=== PATIENT | male | born 1980 | race Caucasian/White ===

== ENCOUNTER 2017-03-20 19:22 | Emergency (ER) | payer OTHER ==
[2017-03-20 19:39] VITALS: BP 196/56
[2017-03-20] MEDS ORDERED: METHYLPREDNISOLONE ACETATE 80 MG/ML VIAL IM ONE (20:06)
[2017-03-20] MEDS ORDERED: ALBUTEROL SULFATE 2.5 MG/0.5 ML VIAL.NEB IH ONE ×2 (20:06→20:09)
[2017-03-20] MEDS ORDERED: METHYLPREDNISOLONE ACETATE 80 MG/ML VIAL ONE (20:09)
--- NOTE | 2017-03-20 20:15 | ERNOTE ---
Date of Service: 03/20/17 Time Seen by Provider: 03/20/17 20:03 Stated Complaint: URI Presenting Symptoms:: cough, runny nose, fever Source: patient Exam Limitations: no limitations Immunizations: IMMUNIZATION HX Immunizations Up to Date Yes History of Influenza Vaccine No Hx Pneumococcal Vaccination No Allergies/Adverse Reactions: Allergies amoxicillin [Amoxicillin] Allergy (Verified 03/20/17 19:39) Home Medications: HOME MEDICATIONS Albuterol Sulfate [Ventolin Hfa] 2 puff IH Q4H PRN #1 inhaler 03/20/17 [Last Taken Unknown] Doxycycline Monohydrate 100 mg PO BID #20 tablet 03/20/17 [Last Taken Unknown] Ibuprofen 800 mg PO Q8H PRN 03/20/17 [Last Taken 03/20/17] predniSONE [Prednisone] 3 tab PO DAILY #9 tab 03/20/17 [Last Taken Unknown] - History of Present Ilness Narrative: Pt. comes in with c/o fever, cough, sore throat, rhinorrhea, sinus congestion, chest congestion, orthopnea, for two days; but denies any SOB, NVD, CP, recent injury but states that a friend has had a similar illness for a couple weeks. Pt. denies any alleviaitng factors, aggravating factors or prehospital treatment. Pt. uses a cpap at home and states that he has increased sputum after using it today. Review of Systems - Review of Systems Constitutional: Present: fever, chills, diaphoresis, weakness, fatigue, malaise. Absent: weight loss, decreased activity level EYE: Present: no symptoms reported ENT: Present: nose congestion, nasal drainage, sore throat. Absent: throat swelling Respiratory: Present: cough, orthopnea, wheezing. Absent: shortness of breath Cardiology: Absent: chest pain, palpitations, edema Gastrointestinal/Abdominal: Present: no symptoms reported. Absent: nausea, vomiting, diarrhea Genitourinary: Present: no symptoms reported Musculoskeletal: Present: no symptoms reported. Absent: back pain, joint pain Skin: Present: no symptoms reported. Absent: rash, change in color Neurological: Present: no symptoms reported. Absent: headache, dizziness/light- headedness, numbness, tingling All Other Systems: All systems neg except as marked - Patient's Past Medical History Patient History - Medical: Obesity Patient History - Cardiac/Respiratory: Asthma, Bronchitis, Hypertension, Pneumonia, CPAP/BiPAP Home Use, Sleep Apnea Patient History - Cancer: No Hx of Cancer Patient History - Surgical Procedures: No surgical history Patient History - Other: None - Family History Father Family History - Medical: Diabetes Type 2 Family History - Cardiac/Respiratory: Myocardial Infarction - Social History Living Situations: home Abuse History: No History of abuse Psych History: No pertinent hx Smoking Status: Never smoker Alcohol Use: rarely Drug Use: none - Immunizations Immunizations Up to Date: Yes Hx Pneumococcal Vaccination: No History of Influenza Vaccine: No Physical Exam - Physical Exam General Appearance: Present: wd/wn, alert, no apparent distress Head Exam: Present: normal inspection, no evidence of injury Eye Exam: Normal inspection: bilateral, PERRL: bilateral, EOMI: bilateral Ears, Nose, Throat: Present: nasal congestion, pharyngeal erythema. Absent: abnormal TM (R), abnormal TM (L), tonsillar swelling Neck: Present: normal inspection, nontender, supple, full range of motion. Absent: lymphadenopathy (R), lymphadenopathy (L) Respiratory: Present: no respiratory distress, crackles - coarse upper, wheezing - exp throughout Cardiovascular/Chest: Present: no murmur, normal peripheral pulses, tachycardia Gastrointestinal/Abdominal: Present: normal bowel sounds, nontender, nondistended, soft, no organomegaly, other - obese Back Exam: Present: normal inspection Extremity Exam: Present: normal inspection Neurological Exam: Present: alert, oriented, normal mood/affect, no motor/ sensory deficits Skin Exam: Present: warm/dry, pallor ED Progress - Date and Time Seen: Date and Time: 03/20/17 21:06 Given pt. severity of illness and significant pulmonary history will start pt. on abx with steroid burst and prn rescue inhaler. - Vital Signs Patient's Vital Signs:: I have reviewed the patient's vital signs. Vital Signs: Vital Signs 03/20/17 19:34 Temperature 37.5 C Pulse Rate 98 Respiratory 22 H Rate Blood Pressure 196/56 O2 Sat by Pulse 99 Oximetry - X-Ray X-Ray #1 X-Ray: chest Interpretation: Interp. by me X-ray Comments: No obvious consolidations noted bronchial cuffing noted. - Progress/Reassessment Chief Complaint: Upper Respiratory Symptoms Departure - Departure Clinical Impression: Acute bronchitis Qualifiers: Bronchitis organism: unspecified organism Qualified Code(s): J20.9 - Acute bronchitis, unspecified Disposition: Home self-care Condition: Good Instructions: Acute Bronchitis, [id number] Additional Instructions: Please follow up with primary provider in 2-3 days. Cough and deep breath 10 x every hour. Referrals: Todd Harry MD [Primary Care Provider] - Prescriptions: Albuterol Sulfate [Ventolin Hfa] 2 puff IH Q4H PRN #1 inhaler PRN Reason: Shortness Of Breath Doxycycline Monohydrate 100 mg PO BID #20 tablet predniSONE [Prednisone] 3 tab PO DAILY #9 tab
== END 2017-03-20 21:10 | disposition home or self-care (01) ==
LOC: ER 19:22
DX: J20.9 Acute bronchitis, unspecified (principal)

== ENCOUNTER 2018-05-31 13:56 | Observation (INO) ==
[2018-05-31] MEDS ORDERED: NORMAL SALINE 1,000 ML IV ONE ×2 (14:29→15:41)
[2018-05-31] MEDS ORDERED: ONDANSETRON HCL/PF 2 MG/ML VIAL IV ONE (14:29)
--- NOTE | 2018-05-31 14:30 | ERNOTE ---
Dyspnea - Date Date of Service: 05/31/18 - General Presenting Symptoms: shortness of breath, other - vomiting Time Seen by Provider: 05/31/18 14:21 Source: patient, RN notes reviewed Exam Limitations: clinical condition - Immun/Allergies/Home Medications Immunizations: IMMUNIZATION HX Immunizations Up to Date Yes History of Influenza Vaccine No Hx Pneumococcal Vaccination No Allergies/Adverse Reactions: Allergies amoxicillin [Amoxicillin] Allergy (Verified 05/31/18 14:16) Home Medications: HOME MEDICATIONS metFORMIN HCL [Metformin HCl] 500 mg PO DAILY 01/12/18 [Last Taken Unknown] Ibuprofen [Motrin] 800 mg PO QID PRN 05/31/18 [Last Taken Unknown] - History of Present Illness Narrative: Bentley is a 37 year old male who drove himself to the ED for vomiting and dyspnea that began early this morning. He has been vomiting once or twice a day for approximately 2 weeks. He has had several episodes of vomiting so far today. He has not had a bowel movement for 3 days, but he also reports that he has not been eating much for the past 2 weeks. He denies having a cough or any sick contacts. He is type II diabetic and has not been checking his blood sugars. He also reports having acid reflux and frequent belching. He has been taking Tums for this. Date (Duration): 05/31/18 Time (Timing): 03:00 Treatment DAIRY FARMER: none Initiating event: Reports: unknown Modifying Factors - (Improves): Reports: rest Modifying Factors (Worsens): Reports: activity. Denies: lying down Prior Treatment: Denies: recently seen Review of Systems - Review of Systems Constitutional: Present: malaise. Absent: fever, chills EYE: Present: no symptoms reported ENT: Absent: nose congestion, sore throat Respiratory: Present: shortness of breath. Absent: cough, orthopnea, wheezing Cardiology: Absent: chest pain, syncope Gastrointestinal/Abdominal: Present: nausea, vomiting, abdominal pain, eating less. Absent: diarrhea, drinking less Genitourinary: Absent: frequency, dysuria, hematuria Musculoskeletal: Absent: muscle pain, joint pain Skin: Absent: rash, lesions Neurological: Absent: headache, dizziness/light-headedness Endocrine: Present: increased thirst. Absent: increased urine Hematologic/Lymphatic: Absent: easy bruising, easy bleeding Psych: Present: no symptoms reported Medical History (Last Updated 05/31/18 @ 19:40 by Zeinab Whalen NP) Sleep apnea Cellulitis of both lower extremities Diabetes Lymphedema of both lower extremities Obesity Surgical History: Surgical History (Last Reviewed 05/31/18 @ 19:40 by Zeinab Whalen NP) No pertinent past surgical history Social History: Preferred Language Macedonian Smoking Status Never smoker Abuse History No History of abuse Psych History No pertinent hx Alcohol Use rarely Drug Use none No Social History Section defined Physical Exam - Physical Exam General Appearance: Present: alert, mild distress, obese - Extreme, morbid Head Exam: Present: normal inspection Ears, Nose, Throat: Present: normal ENT inspection, normal pharynx Respiratory: Present: chest nontender, accessory muscle use - mild tachypnea, decreased breath sounds - d/t large body habitus Cardiovascular/Chest: Present: no murmur, tachycardia Gastrointestinal/Abdominal: Present: normal bowel sounds, soft, tenderness - Mild, right and left upper quadrants, distended - Obese Back Exam: Present: normal inspection, no CVA tenderness Extremity Exam: Present: non-tender, normal range of motion, pedal edema Neurological Exam: Present: alert, oriented, normal mood/affect, no motor/sensory deficits Skin Exam: Present: normal color, warm/dry ED Progress - Results and Orders Patient's Lab Results:: I have reviewed the patient's lab results. - Vital Signs Patient's Vital Signs:: I have reviewed the patient's vital signs. Vital Signs: Vital Signs 05/31/18 13:57 Temperature 37.8 C Pulse Rate 136 H Respiratory Rate 22 H Blood Pressure 187/95 H O2 Sat by Pulse Oximetry 97 - EKG EKG: supraventricular tachycardia EKG read: Reviewed by me - X-Ray X-Ray #1 X-Ray: chest Interpretation: Reviewed by me X-ray Comments: No acute cardiopulmonary abnormality noted - CT/Ultrasound CT/Ultrasound Narrative: US gall bladder shows sludge but no wall thickening or surrounding fluid Retroperitoneal US demonstrates no hydronephrosis - Progress/Reassessment Chief Complaint: Dyspnea Progress:: Improved Plan - Plan Plan: Nausea and vomiting resolved with Zofran. Toradol was given for abdominal pain with some improvement. The patient was given 2 liters of IV NS with some improvement in his heart rate from the 130's on arrival to the low 100's currently. He has continued to complain of dyspnea. He is mildly tachypneic at rest and does become dyspneic with exertion. His oxygen saturation has remained in the high 90's on room air and his chest xray was unremarkable. He has no chest pain and no prior history of VTE, making a PE unlikely. His WBC was elevated but procalcitonin and lactic acid were normal. His bilirubin was elevated, and given the location of his abdominal pain, along with his vomiting and leukocytosis, cholecystitis was suspected. An US of the gall bladder was done and only showed sludge. A retroperitoneal US was done to evaluate his hematuria as he is too large for the CT scanner. This was unremarkable as well. Dr. Valdez was contacted and agreed to admitting the patient to observation status. He will be started on Levaquin to cover his UTI as well as any possible pneumonia. His blood pressure was elevated at 200/120 prior to transfer to med/surg. Labetolol 20 mg was given IV. Departure Clinical Impression: UTI (urinary tract infection) Qualifiers: Urinary tract infection type: site unspecified Hematuria presence: with hematuria Qualified Code(s): N39.0 - Urinary tract infection, site not specified Dyspnea Qualifiers: Dyspnea type: unspecified Qualified Code(s): R06.00 - Dyspnea, unspecified Vomiting Qualifiers: Vomiting type: unspecified Vomiting Intractability: non-intractable Nausea presence: with nausea Qualified Code(s): R11.2 - Nausea with vomiting, unspecified - Departure Disposition: Still a patient Condition: Stable
[2018-05-31 14:50] LABS: Hematocrit 34.7 % (42.0-52.0); Mean Cell Volume 79.6 fl (78-100); Mean Corpuscular Hemoglobin 25.2 pg (27-31); Mean Corpuscular Hgb Conc 31.7 g/dl (32-36); Mean Platelet Volume 10.4 fl (8-11.3); Neutrophil # 11.2 K/mm3 (1.3-6.0); Neutrophil % 84.9 % (42-75.0); Platelet Count 321 K/mm3 (150-450); Red Blood Count 4.36 M/mm3 (4.7-6.0); Red Cell Distribution Width 16.1 % (11.5-14.0); White Blood Count 13.2 K/mm3 (4.0-10.5)
[2018-05-31 15:07] LABS: Albumin * 2.5 gm/dl (3.4-5.0); BUN/Creatinine Ratio 7.6 (9.0-21.6); Bilirubin, Total 1.8 mg/dL (0.0-1.1); Carbon Dioxide 25.2 mmol/L (24-32.6); Potassium 4.2 mmol/L (3.4-4.6); Total Protein 7.6 gm/dL (6.2-8.2)
[2018-05-31 15:29] LABS: Ca. Corrected For Albumin 10.5 mg/dL (8.4-10.2); Calcium * 9.6 mg/dL (7.9-10.9)
[2018-05-31 15:57] LABS: Amylase * 16 U/L (25-115); Lipase 113 U/L (73-393)
[2018-05-31 15:59] LABS: Urine Bilirubin 1 mg/dl (NEGATIVE); Urine Blood 250 /ul (NEGATIVE); Urine Ketone Negative (NEGATIVE); Urine Nitrite Negative (NEGATIVE); Urine Protein 100 mg/dL (NEGATIVE); Urine Specific Gravity >=1.030 SP.GR. (1.005-1.030); Urine Urobilinogen Normal (NORMAL)
[2018-05-31] MEDS ORDERED: KETOROLAC TROMETHAMINE 30 MG/ML VIAL IV ONE (15:59)
[2018-05-31 16:18] LABS: Urine Appearance Slightly Cloudy (CLEAR); Urine Color Amber
[2018-05-31 16:20] LABS: Urine Bacteria None Seen; Urine Fine Granular Cast TRACE /LPF; Urine RBC 25-50 /hpf (0-5)
[2018-05-31] MEDS ORDERED: LEVOFLOXACIN IN DEXTROSE 5 % 750 MG/150 ML BAG IV ONE (18:51)
[2018-05-31] MEDS ORDERED: LABETALOL HCL 5 MG/ML VIAL IV ONE (18:53)
[2018-05-31] MEDS ORDERED: ONDANSETRON HCL/PF 2 MG/ML VIAL IV PRN (21:37)
[2018-05-31] MEDS: NORMAL SALINE 1,000 ML IV PRN (22:12)
--- NOTE | 2018-05-31 22:51 | HP ---
Chief Complaint - Chief Complaint Date of Service: 05/31/18 Time of Service: 22:50 Chief Complaint: Nausea, vomiting History of Present Illness: Bentley is a 37 yo male with severe morbid obesity who presented to the [facility] ER with fever, chills, abdominal pain, nausea, and vomiting. Symptoms were treated in the ER but did not resolve. He was found to have hyponatremia of 126 and WBC of 13K. He also had blood present in UA and it was suspected he might have a kidney stone. US was performed but showed no evidence of stone or obstruction. Due to his weight he was unable to be scanned on CT. Chest xray showed nothing acute. As his symptoms were uncontrolled in the ER, medicine was contacted to admit to observation. Medical History (Last Reviewed 06/13/18 @ 13:13 by Todd Harry MD) Psoriasis (Chronic) Hypertension (Chronic) Bilateral lower extremity edema (Chronic) Asthma (Chronic) Sleep apnea (Chronic) Diabetes (Chronic) Cellulitis of both lower extremities Lymphedema of both lower extremities Obesity Surgical History: Surgical History (Last Reviewed 06/13/18 @ 13:13 by Todd Harry MD) No pertinent past surgical history Family History: Family History (Last Reviewed 06/13/18 @ 13:13 by Todd Harry MD) Father Diabetes Myocardial infarction Hypertension CVA (cerebral vascular accident) Mother Skin cancer Social History: Patient Lives/Resources Home Utilized Occupation Unemployed Preferred Language Pashto Do you have any pentecostalism or No cultural preference? Smoking Status Never smoker Have you smoked in the past 12 No months Do you dip or chew tobacco No Abuse History No History of abuse Psych History No pertinent hx Alcohol Use rarely Drug Use none No Social History Section defined Review Of Systems (GEN) - Review of Systems Generalized/Overall Review: Present: Weakness, Chills, Fever, Malaise, Diaphoresis, Fatigue EENTM: Present: No Symptoms Reported Respiratory: Present: Shortness of Breath. Absent: Cough Cardiac: Absent: Chest Pain, Palpitations Abdominal: Present: Nausea, Vomiting, Abdominal Pain Genitourinary: Absent: Burning, Urgency, Frequency Musculoskeletal: Present: Joint Pain, Back Pain Neurological: Present: Headache Skin: Present: No Symptoms Reported Endocrine: Present: No Symptoms Reported Immunizations: IMMUNIZATION HX Immunizations Up to Date Yes History of Influenza Vaccine No Hx Pneumococcal Vaccination No Allergies/Adverse Reactions: Allergies Allergy/AdvReac Type Severity Reaction Status Date / Time amoxicillin [Amoxicillin] Allergy Verified 06/07/18 15:12 Home Medications: HOME MEDICATIONS metFORMIN HCL [Metformin HCl] 500 mg PO DAILY 01/12/18 [Last Taken Unknown] Ibuprofen [Motrin] 800 mg PO QID PRN 05/31/18 [Last Taken Unknown] Lisinopril [Zestril] 10 mg PO DAILY #30 tab 06/02/18 [Last Taken Unknown] Ondansetron HCl [Zofran] 8 mg PO Q6H #30 tab 06/02/18 [Last Taken Unknown] sulfamethoxazole 800 mg-trimethoprim 160 mg tablet 1 tab PO Q12H #28 tab 06/07/18 [Last Taken Unknown] Exam - Exam Vital Signs: Vital Signs - Last Taken Temp 37.3 C 05/31/18 19:50 Pulse 113 H 05/31/18 19:50 Resp 21 H 05/31/18 19:50 BP 145/89 H 05/31/18 19:50 Pulse Ox 99 05/31/18 19:50 Constitutional: Present: Alert, Oriented x3, Cooperative, Morbidly obese ENT Exam: Present: hearing grossly normal Eye Exam: bilateral eye: normal inspection Respiratory: Present: lungs clear, normal breath sounds Cardiovascular/Chest: Present: regular rate, rhythm, no murmur Abdomen: Present: Normal bowel sounds, soft, nontender Skin Exam: Present: normal color, warm/dry, no cyanosis Eye contact: Present: cooperative, good eye contact, normal speech Thoughts: Present: normal thought pattern, no apparent hallucination Diagnostic Studies: Abnormal Lab Results 05/31/18 05/31/18 05/31/18 Range/Units 14:30 14:30 14:30 WBC 13.2 H (4.0-10.5) K/mm3 RBC 4.36 L (4.7-6.0) M/mm3 Hgb 11.0 L (13.5-18.0) gm/dL Hct 34.7 L (42.0-52.0) % MCH 25.2 L (27-31) pg MCHC 31.7 L (32-36) g/dl RDW 16.1 H (11.5-14.0) % Immature Gran % (Auto) 0.70 H (0.001-0.429) % Immature Gran # (Auto) 0.09 H (0.000-0.0310) K/mm3 Neutrophils % 84.9 H (42-75.0) % Lymphocytes % 3.3 L (20-51) % Monocytes % 10.9 H (0.0-9) % Neutrophils # 11.2 H (1.3-6.0) K/mm3 Lymphocytes # 0.43 L (1.5-3.5) k/mm3 Monocytes # 1.4 H (0.0-1.0) k/mm3 Sodium 127 L (132-142) mmol/L Plasma Sodium 129 L (130-142) mmol/L Chloride 93 L (97-106) mmol/L Creatinine 1.57 H D (0.4-1.4) mg/dL Est GFR (Non-Af Amer) 54 L D (60-130) mL/min BUN/Creatinine Ratio 7.6 L (9.0-21.6) Random Glucose 203 H (70-110) mg/dL Calcium Adj for Albumin 10.5 H (8.4-10.2) mg/dL Total Bilirubin 1.8 H (0.0-1.1) mg/dL C-Reactive Prot, Quant 29.2 H (0.0-0.9) mg/dL Albumin 2.5 L (3.4-5.0) gm/dl Amylase (25-115) U/L Urine Protein (NEGATIVE) mg/dL Urine Blood (NEGATIVE) /ul Urine Bilirubin (NEGATIVE) mg/dl Prot Sulfosalicylic Acd (0) mg/dL Ur Leukocyte Esterase (NEGATIVE) /ul Urine RBC (0-5) /hpf Urine WBC (0-5) /hpf 05/31/18 05/31/18 Range/Units 15:41 15:53 WBC (4.0-10.5) K/mm3 RBC (4.7-6.0) M/mm3 Hgb (13.5-18.0) gm/dL Hct (42.0-52.0) % MCH (27-31) pg MCHC (32-36) g/dl RDW (11.5-14.0) % Immature Gran % (Auto) (0.001-0.429) % Immature Gran # (Auto) (0.000-0.0310) K/mm3 Neutrophils % (42-75.0) % Lymphocytes % (20-51) % Monocytes % (0.0-9) % Neutrophils # (1.3-6.0) K/mm3 Lymphocytes # (1.5-3.5) k/mm3 Monocytes # (0.0-1.0) k/mm3 Sodium (132-142) mmol/L Plasma Sodium (130-142) mmol/L Chloride (97-106) mmol/L Creatinine (0.4-1.4) mg/dL Est GFR (Non-Af Amer) (60-130) mL/min BUN/Creatinine Ratio (9.0-21.6) Random Glucose (70-110) mg/dL Calcium Adj for Albumin (8.4-10.2) mg/dL Total Bilirubin (0.0-1.1) mg/dL C-Reactive Prot, Quant (0.0-0.9) mg/dL Albumin (3.4-5.0) gm/dl Amylase 16 L (25-115) U/L Urine Protein 100 H (NEGATIVE) mg/dL Urine Blood 250 H (NEGATIVE) /ul Urine Bilirubin 1 H (NEGATIVE) mg/dl Prot Sulfosalicylic Acd 4+ H (0) mg/dL Ur Leukocyte Esterase 100 H (NEGATIVE) /ul Urine RBC 25-50 H (0-5) /hpf Urine WBC 10-25 H (0-5) /hpf Laboratory Results WBC 13.2 K/mm3 (4.0-10.5) H 05/31/18 14:30 RBC 4.36 M/mm3 (4.7-6.0) L 05/31/18 14:30 Hgb 11.0 gm/dL (13.5-18.0) L 05/31/18 14:30 Hct 34.7 % (42.0-52.0) L 05/31/18 14:30 MCV 79.6 fl (78-100) 05/31/18 14:30 MCH 25.2 pg (27-31) L 05/31/18 14:30 MCHC 31.7 g/dl (32-36) L 05/31/18 14:30 RDW 16.1 % (11.5-14.0) H 05/31/18 14:30 Plt Count 321 K/mm3 (150-450) 05/31/18 14:30 MPV 10.4 fl (8-11.3) 05/31/18 14:30 Immature Gran % (Auto) 0.70 % (0.001-0.429) H 05/31/18 14:30 Immature Gran # (Auto) 0.09 K/mm3 (0.000-0.0310) H 05/31/18 14:30 Neutrophils % 84.9 % (42-75.0) H 05/31/18 14:30 Lymphocytes % 3.3 % (20-51) L 05/31/18 14:30 Monocytes % 10.9 % (0.0-9) H 05/31/18 14:30 Eosinophils % 0.0 % (0.0-3.0) 05/31/18 14: Basophils % 0.2 % (0.0-1.0) 05/31/18 14: Nucleated RBC % 0.0 k/mm3 (0-1) 05/31/18 14:30 Neutrophils # 11.2 K/mm3 (1.3-6.0) H 05/31/18 14:30 Lymphocytes # 0.43 k/mm3 (1.5-3.5) L 05/31/18 14:30 Monocytes # 1.4 k/mm3 (0.0-1.0) H 05/31/18 14:30 Eosinophils # 0.0 k/mm3 (0.0-0.7) 05/31/18 14:30 Absolute Basophils 0.0 k/mm3 (0.0-0.1) 05/31/18 14:30 Sodium 127 mmol/L (132-142) L 05/31/18 14:30 Plasma Sodium 129 mmol/L (130-142) L 05/31/18 14:30 Potassium 4.2 mmol/L (3.4-4.6) 05/31/18 14:30 Chloride 93 mmol/L (97-106) L 05/31/18 14:30 Carbon Dioxide 25.2 mmol/L (24-32.6) 05/31/18 14:30 Anion Gap 13.0 mmol/L (6.8-13.8) 05/31/18 14:30 BUN 12 mg/dL (6-23) 05/31/18 14:30 Creatinine 1.57 mg/dL (0.4-1.4) H D 05/31/18 14:30 Est GFR (Non-Af Amer) 54 mL/min (60-130) L D 05/31/18 14:30 BUN/Creatinine Ratio 7.6 (9.0-21.6) L 05/31/18 14:30 Random Glucose 203 mg/dL (70-110) H 05/31/18 14:30 Lactic Acid, Venous 1.0 mmol/L (0.4-2.0) 05/31/18 17:00 Calcium 9.6 mg/dL (7.9-10.9) 05/31/18 14:30 Calcium Adj for Albumin 10.5 mg/dL (8.4-10.2) H 05/31/18 14:30 Total Bilirubin 1.8 mg/dL (0.0-1.1) H 05/31/18 14:30 AST 43 U/L (0-48) 05/31/18 14:30 ALT 53 U/L (19-67) 05/31/18 14:30 Alkaline Phosphatase 100 U/L (50-170) 05/31/18 14:30 C-Reactive Prot, Quant 29.2 mg/dL (0.0-0.9) H 05/31/18 14:30 Total Protein 7.6 gm/dL (6.2-8.2) 05/31/18 14:30 Albumin 2.5 gm/dl (3.4-5.0) L 05/31/18 14:30 Amylase 16 U/L (25-115) L 05/31/18 15:41 Lipase 113 U/L (73-393) 05/31/18 15:41 Procalcitonin 0.37 ng/mL (0.05-0.50) 05/31/18 14:30 Urine Color Jen 05/31/18 15:53 Urine Appearance Slightly cloudy (CLEAR) 05/31/18 15:53 Urine pH 6.0 pH (5.0-7.0) 05/31/18 15:53 Ur Specific Supply >=1.030 SP.GR. (1.005-1.030) 05/31/18 15:53 Urine Protein 100 mg/dL (NEGATIVE) H 05/31/18 15:53 Urine Glucose (UA) Negative mg/dL (NEGATIVE) 05/31/18 15:53 Urine Ketones Negative mg/dL (NEGATIVE) 05/31/18 15:53 Urine Blood 250 /ul (NEGATIVE) H 05/31/18 15:53 Urine Nitrate Negative (NEGATIVE) 05/31/18 15:53 Urine Bilirubin 1 mg/dl (NEGATIVE) H 05/31/18 15:53 Urine Ictotest Negative (NEGATIVE) 05/31/18 15:53 Prot Sulfosalicylic Acd 4+ mg/dL (0) H 05/31/18 15:53 Urine Urobilinogen Normal EU/dl (NORMAL) 05/31/18 15:53 Ur Leukocyte Esterase 100 /ul (NEGATIVE) H 05/31/18 15:53 Urine RBC 25-50 /hpf (0-5) H 05/31/18 15:53 Urine WBC 10-25 /hpf (0-5) H 05/31/18 15:53 Ur Epithelial Cells 0-5 /hpf (0-5) 05/31/18 15:53 Urine Bacteria None seen (NONE) 05/31/18 15:53 Fine Granular Casts Trace /LPF (NONE) 05/31/18 15:53 Urine Culture Comments Culture to follow 05/31/18 15:53 Influenza Type A Ag Negative (NEGATIVE) 05/31/18 19:10 Influenza Type B Ag Negative (NEGATIVE) 05/31/18 19:10 Assessment/Plan - Narrative Narrative: Bentley is a 37 yo morbidly obese male with fever, abdominal pain, nausea, vomiting, and leukocytosis. Differential includes viral gastritis, nephrolithiasis, UTI. He has mild hyponatremia. This is secondary to poor oral intake and emesis. Will treat with IV fluids of NS. Will treat with levaquin to cover UTI while culture pending, this will also cover other intraabdominal infections as further evaluation with imaging is limited due to patient's weight. - Assessment/Plan (1) Fever Problem: Acute Qualifiers: Fever type: unspecified Qualified Code(s): R50.9 - Fever, unspecified (2) Vomiting Problem: Acute Qualifiers: Vomiting type: unspecified Vomiting Intractability: non-intractable Nausea presence: with nausea Qualified Code(s): R11.2 - Nausea with vomiting, unspecified (3) Hyponatremia Problem: Resolved
[2018-06-01] MEDS ORDERED: LABETALOL HCL 5 MG/ML VIAL IV ONE (01:06)
[2018-06-01] MEDS: NORMAL SALINE 1,000 ML IV PRN ×4 (07:04→21:56)
[2018-06-01] MEDS ORDERED: MAGNESIUM CITRATE 300 ML BTL PO ONE (07:22)
[2018-06-01] MEDS ORDERED: BISACODYL 10 MG SUPP.RECT RC ONE (07:22)
[2018-06-01 10:21] LABS: Hematocrit 31.5 % (42.0-52.0); Hemoglobin 9.9 gm/dL (13.5-18.0); Mean Cell Volume 78.9 fl (78-100); Mean Corpuscular Hemoglobin 24.8 pg (27-31); Mean Corpuscular Hgb Conc 31.4 g/dl (32-36); Mean Platelet Volume 10.5 fl (8-11.3); Neutrophil # 8.8 K/mm3 (1.3-6.0); Platelet Count 267 K/mm3 (150-450); Red Blood Count 3.99 M/mm3 (4.7-6.0); Red Cell Distribution Width 16.3 % (11.5-14.0); White Blood Count 11.1 K/mm3 (4.0-10.5)
[2018-06-01 10:38] LABS: Albumin * 2.3 gm/dl (3.4-5.0); Anion Gap 17.2 mmol/L (6.8-13.8); BUN/Creatinine Ratio 8.7 (9.0-21.6); Bilirubin, Total 1.7 mg/dL (0.0-1.1); Ca. Corrected For Albumin 9.4 mg/dL (8.4-10.2); Calcium * 8.4 mg/dL (7.9-10.9); Potassium 4.2 mmol/L (3.4-4.6); Total Protein 7.3 gm/dL (6.2-8.2)
[2018-06-01 14:03] LABS: Albumin * 2.2 gm/dl (3.4-5.0); Anion Gap 10.7 mmol/L (6.8-13.8); BUN/Creatinine Ratio 8.8 (9.0-21.6); Bilirubin, Total 1.4 mg/dL (0.0-1.1); Ca. Corrected For Albumin 9.6 mg/dL (8.4-10.2); Calcium * 8.5 mg/dL (7.9-10.9); Carbon Dioxide 24.5 mmol/L (24-32.6); Potassium 4.2 mmol/L (3.4-4.6); Total Protein 7.1 gm/dL (6.2-8.2)
[2018-06-01] MEDS: LISINOPRIL 10 MG TABLET PO SCH (17:01)
[2018-06-01] MEDS: ACETAMINOPHEN 500 MG TABLET PO PRN ×2 (17:01→23:15)
--- NOTE | 2018-06-01 23:35 | PN ---
Subjective - Date and Time Seen Date: 06/01/18 Time: 10:15 Subjective Narrative: Bentley reports feeling better today, still weak. Sodium still low at 127. Will keep in hospital for additional day of observation as sodium is too low to discharge, but I suspect it will be improved enough for discharge tomorrow. Continue antibiotics, urine culture with bacteria will wait for sensitivities. Will change to oral and plan to discharge to home tomorrow. Objective - Vitals Vitals: Last Vital Signs Temp 37.0 C 06/01/18 14:47 Pulse 104 H 06/01/18 22:10 Resp 20 06/01/18 22:10 BP 185/85 H 06/01/18 17:01 Pulse Ox 99 06/01/18 22:10 - Abnormal Lab Findings Abnormal Lab Findings: Abnormal Lab Results 06/01/18 06/01/18 06/01/18 Range/Units 10:03 10:03 13:45 WBC 11.1 H (4.0-10.5) K/mm3 RBC 3.99 L (4.7-6.0) M/mm3 Hgb 9.9 L (13.5-18.0) gm/dL Hct 31.5 L (42.0-52.0) % MCH 24.8 L (27-31) pg MCHC 31.4 L (32-36) g/dl RDW 16.3 H (11.5-14.0) % Immature Gran % (Auto) 0.80 H (0.001-0.429) % Immature Gran # (Auto) 0.09 H (0.000-0.0310) K/mm3 Neutrophils % 79.0 H (42-75.0) % Lymphocytes % 6.2 L (20-51) % Monocytes % 13.7 H (0.0-9) % Neutrophils # 8.8 H (1.3-6.0) K/mm3 Lymphocytes # 0.69 L (1.5-3.5) k/mm3 Monocytes # 1.5 H (0.0-1.0) k/mm3 Sodium 127 L 126 L (132-142) mmol/L Plasma Sodium 128 L 127 L (130-142) mmol/L Chloride 92 L 95 L (97-106) mmol/L Carbon Dioxide 22.0 L (24-32.6) mmol/L Anion Gap 17.2 H (6.8-13.8) mmol/L Creatinine 1.49 H 1.47 H (0.4-1.4) mg/dL Est GFR (Non-Af Amer) 57 L 58 L (60-130) mL/min BUN/Creatinine Ratio 8.7 L 8.8 L (9.0-21.6) Random Glucose 193 H 161 H (70-110) mg/dL Total Bilirubin 1.7 H 1.4 H (0.0-1.1) mg/dL AST 67 H 64 H (0-48) U/L Albumin 2.3 L 2.2 L (3.4-5.0) gm/dl
[2018-06-02] MEDS ORDERED: NORMAL SALINE 1,000 ML IV PRN (04:24)
[2018-06-02] MEDS: LISINOPRIL 10 MG TABLET PO SCH ×2 (07:10→08:01)
[2018-06-02] MEDS ORDERED: SULFAMETHOXAZOLE/TRIMETHOPRIM 1 TAB TABLET PO SCH (10:15)
[2018-06-02 10:41] LABS: Hematocrit 29.6 % (42.0-52.0); Hemoglobin 9.3 gm/dL (13.5-18.0); Mean Corpuscular Hemoglobin 25.1 pg (27-31); Mean Corpuscular Hgb Conc 31.4 g/dl (32-36); Mean Platelet Volume 10.4 fl (8-11.3); Neutrophil # 4.4 K/mm3 (1.3-6.0); Neutrophil % 70.9 % (42-75.0); Platelet Count 239 K/mm3 (150-450); Red Cell Distribution Width 16.5 % (11.5-14.0); White Blood Count 6.2 K/mm3 (4.0-10.5)
[2018-06-02 10:56] LABS: Albumin * 2.1 gm/dl (3.4-5.0); Anion Gap 12.6 mmol/L (6.8-13.8); BUN/Creatinine Ratio 10.6 (9.0-21.6); Bilirubin, Total 0.8 mg/dL (0.0-1.1); Ca. Corrected For Albumin 9.7 mg/dL (8.4-10.2); Calcium * 8.5 mg/dL (7.9-10.9); Carbon Dioxide 25.6 mmol/L (24-32.6); Potassium 4.2 mmol/L (3.4-4.6); Total Protein 6.7 gm/dL (6.2-8.2)
--- NOTE | 2018-06-02 11:21 | DS ---
(1) UTI (urinary tract infection) Problem: Acute Qualifiers: Urinary tract infection type: acute cystitis Hematuria presence: without hematuria Qualified Code(s): N30.00 - Acute cystitis without hematuria (2) Hyponatremia Problem: Resolved Description of Stay: Bentley is a 37 yo male admitted for hyponatremia, fever, and nausea. He was treated with IV normal saline and sodium was monitored. Initial evaluation suggested an infectious etiology but no significant findings from exam of chest or abdomen. Culture ultimately grew bacteria from the urine identifying his problem as a urinary tract infection that caused his nausea and poor oral intake, which led to the hyponatremia. With IV fluids his sodium was corrected. During hospital course he was found to be consistently hypertensive. Due to his diabetes history it would be beneficial for him to be on DESHAUN inhibitor. He was started on lisinopril. He will be discharged to home on bactrim for treatment of UTI. He will follow up in clinic with his primary care provider for recheck of blood pressure. Procedures Performed: none Results and Findings: Pending Mircobiology Results 05/31/18 15:00 Urine,Clean Catch Urine Culture - Preliminary Gram Negative Bacilli Lab Pending Results 05/31/18 14:30: WBC 13.2 H, RBC 4.36 L, Hgb 11.0 L, Hct 34.7 L, MCV 79.6, MCH 25.2 L, MCHC 31.7 L, RDW 16.1 H, Plt Count 321, MPV 10.4, Immature Gran % (Auto) 0.70 H, Immature Gran # (Auto) 0.09 H, Neutrophils % 84.9 H, Lymphocytes % 3.3 L, Monocytes % 10.9 H, Eosinophils % 0.0, Basophils % 0.2, Nucleated RBC % 0.0, Neutrophils # 11.2 H, Lymphocytes # 0.43 L, Monocytes # 1.4 H, Eosinophils # 0.0, Absolute Basophils 0.0 05/31/18 14:30: Sodium 127 L, Plasma Sodium 129 L, Potassium 4.2, Chloride 93 L, Carbon Dioxide 25.2, Anion Gap 13.0, BUN 12, Creatinine 1.57 H D, Est GFR (Non- Af Amer) 54 L D, BUN/Creatinine Ratio 7.6 L, Random Glucose 203 H, Calcium 9.6, Calcium Adj for Albumin 10.5 H, Total Bilirubin 1.8 H, AST 43, ALT 53, Alkaline Phosphatase 100, Total Protein 7.6, Albumin 2.5 L 05/31/18 14:30: Procalcitonin 0.37 05/31/18 14:30: C-Reactive Prot, Quant 29.2 H 05/31/18 15:41: Amylase 16 L, Lipase 113 05/31/18 15:53: Urine Color Jen, Urine Appearance Slightly cloudy, Urine pH 6.0, Ur Specific [place] >=1.030, Urine Protein 100 H, Urine Glucose (UA) Negative, Urine Ketones Negative, Urine Blood 250 H, Urine Nitrate Negative, Urine Bilirubin 1 H, Urine Ictotest Negative, Prot Sulfosalicylic Acd 4+ H, Urine Urobilinogen Normal, Ur Leukocyte Esterase 100 H, Urine RBC 25-50 H, Urine WBC 10-25 H, Ur Epithelial Cells 0-5, Urine Bacteria None seen, Fine Granular Casts Trace, Urine Culture Comments Culture to follow 05/31/18 17:00: Lactic Acid, Venous 1.0 05/31/18 19:10: Influenza Type A Ag Negative, Influenza Type B Ag Negative 06/01/18 10:03: WBC 11.1 H, RBC 3.99 L, Hgb 9.9 L, Hct 31.5 L, MCV 78.9, MCH 24.8 L, MCHC 31.4 L, RDW 16.3 H, Plt Count 267, MPV 10.5, Immature Gran % (Auto) 0.80 H, Immature Gran # (Auto) 0.09 H, Neutrophils % 79.0 H, Lymphocytes % 6.2 L, Monocytes % 13.7 H, Eosinophils % 0.0, Basophils % 0.3, Nucleated RBC % 0.0, Neutrophils # 8.8 H, Lymphocytes # 0.69 L, Monocytes # 1.5 H, Eosinophils # 0.0, Absolute Basophils 0.0 06/01/18 10:03: Sodium 127 L, Plasma Sodium 128 L, Potassium 4.2, Chloride 92 L, Carbon Dioxide 22.0 L, Anion Gap 17.2 H, BUN 13, Creatinine 1.49 H, Est GFR (Non-Af Amer) 57 L, BUN/Creatinine Ratio 8.7 L, Random Glucose 193 H, Calcium 8.4, Calcium Adj for Albumin 9.4, Total Bilirubin 1.7 H, AST 67 H, ALT 62, Alkaline Phosphatase 87, Total Protein 7.3, Albumin 2.3 L 06/01/18 13:45: Sodium 126 L, Plasma Sodium 127 L, Potassium 4.2, Chloride 95 L, Carbon Dioxide 24.5, Anion Gap 10.7, BUN 13, Creatinine 1.47 H, Est GFR (Non-Af Amer) 58 L, BUN/Creatinine Ratio 8.8 L, Random Glucose 161 H, Calcium 8.5, Calcium Adj for Albumin 9.6, Total Bilirubin 1.4 H, AST 64 H, ALT 65, Alkaline Phosphatase 86, Total Protein 7.1, Albumin 2.2 L 06/02/18 10:32: WBC 6.2 D, RBC 3.70 L, Hgb 9.3 L, Hct 29.6 L, MCV 80.0, MCH 25.1 L, MCHC 31.4 L, RDW 16.5 H, Plt Count 239, MPV 10.4, Immature Gran % (Auto) 1.10 H, Immature Gran # (Auto) 0.07 H, Neutrophils % 70.9, Lymphocytes % 10.5 L, Monocytes % 16.9 H, Eosinophils % 0.3, Basophils % 0.3, Nucleated RBC % 0.0, Neutrophils # 4.4, Lymphocytes # 0.65 L, Monocytes # 1.0, Eosinophils # 0.0, Absolute Basophils 0.0 06/02/18 10:32: Sodium 131 L, Plasma Sodium 132, Potassium 4.2, Chloride 97, Carbon Dioxide 25.6, Anion Gap 12.6, BUN 12, Creatinine 1.13, Est GFR (Non-Af Amer) 78 D, BUN/Creatinine Ratio 10.6, Random Glucose 152 H, Calcium 8.5, Calcium Adj for Albumin 9.7, Total Bilirubin 0.8, AST 73 H, ALT 73 H, Alkaline Phosphatase 78, Total Protein 6.7, Albumin 2.1 L Discharge Location: Home Disposition: Home self-care Condition: Fair Discharge Activity: Activity as tolerated Discharge Diet: General/regular food Referrals: Todd Harry MD [Primary Care Provider] - One Week Problem Oriented Discharge Instructions to Patient/Family: Hyponatremia, Urinary Tract Infection, Adult, [id number], Hypertension, [id number] Prescriptions (Any new or edited meds): Lisinopril [Zestril] 10 mg PO DAILY #30 tablet Ondansetron HCl [Zofran] 8 mg PO Q6H #30 tablet Sulfamethoxazole/Trimethoprim [Bactrim] 1 tab PO BID #10 tablet Complete Home Medications List: Complete Home Medication List: metFORMIN HCL [Metformin HCl] 500 mg PO DAILY 01/12/18 Ibuprofen [Motrin] 800 mg PO QID PRN 05/31/18 Lisinopril [Zestril] 10 mg PO DAILY #30 tablet 06/02/18 Ondansetron HCl [Zofran] 8 mg PO Q6H #30 tablet 06/02/18 Sulfamethoxazole/Trimethoprim [Bactrim] 1 tab PO BID #10 tablet 06/02/18
[2018-06-02 13:49] VITALS: BP 164/86
== END 2018-06-02 13:30 | disposition home or self-care (01) ==
LOC: ER 13:56 → MS 13:56
PROVIDERS: ADMIT Family Medicine; ATTEND Family Medicine
CPT/HCPCS: 36415; 71020; 71046; 74000; 74018; 76705; 76770; 80053; 81001; 82150; 83605; 83690; 84145; 85025; 86140; 87077; 87086; 87186; 87400; 87449; 93005; 94660; 96361; 96365; 96375; 96376; 99285; G0378; J2405